=== PATIENT | female | born 1955 | race Caucasian/White ===

== ENCOUNTER → 2016-10-19 | Outpatient (CLI) | payer BC ==
[~2016-10-19] MED LIST: AMBIEN 10MG10 MG PO; ARTHROTEC 775 MG/TAB PO; ASPIRIN 81M81 MG/TA2 PO; BALANCE B-501 TA1 PO; CLARITIN 1010 MG/TAB PO; COD LIVER OIL1 CAP PO; CORAL CALCIUM1 POW; CRANBERRY FRUI405 MG PO; FERROUS SULFATE65 MG PO; FLOVENT DI50 MCG/Act IH; GLUCOSAMINE 1000; LIORESAL 1010 MG/TAB PO; MILK THISTLE150 MG PO; NATURE'S BLE1000 MCG PO; NORCO 325 MG-51 TAB PO; PREMARIN .3MG0.3 MG PO; PRINZIDE 12.5 M1 TAB PO; PROBIOTIC-MAJOR PO; THE MEDICINE S200 M2 PO; VITAMINC1000TA; [UNRECOGNIZED DRUG - OTHER] PO
== END ==
LOC: MHCPAIN 09:16
DX: G89.29 Other chronic pain (principal); M47.812 Spondylosis without myelopathy or radiculopathy, cervical region; M79.2 Neuralgia and neuritis, unspecified; M17.0 Bilateral primary osteoarthritis of knee; Z87.891 Personal history of nicotine dependence
CPT/HCPCS: G0463

== ENCOUNTER → 2017-08-02 | Outpatient (CLI) | payer BC | LOC: MHCPAIN 15:47 | DX: G89.29 Other chronic pain (principal); M79.2 Neuralgia and neuritis, unspecified; M79.1 Myalgia; M17.0 Bilateral primary osteoarthritis of knee | CPT/HCPCS: G0463 ==

== ENCOUNTER → 2017-08-26 | Outpatient (CLI) | payer BC | LOC: MHCPAIN 14:51 | DX: M17.0 Bilateral primary osteoarthritis of knee (principal) | CPT/HCPCS: J1040; Q9967 ==

== ENCOUNTER → 2017-11-08 | Outpatient (CLI) | payer BC | LOC: MHCPAIN 07:50 | DX: M79.1 Myalgia (principal); M79.2 Neuralgia and neuritis, unspecified | CPT/HCPCS: G0463 ==

== ENCOUNTER → 2018-02-28 | Outpatient (CLI) | payer BC | LOC: MHCPAIN 09:35 | DX: G89.29 Other chronic pain (principal); M53.3 Sacrococcygeal disorders, not elsewhere classified | CPT/HCPCS: G0463 ==

== ENCOUNTER → 2018-05-23 | Outpatient (CLI) | payer BC | LOC: MHCPAIN 07:59 | DX: G89.29 Other chronic pain (principal); M53.3 Sacrococcygeal disorders, not elsewhere classified; M79.2 Neuralgia and neuritis, unspecified | CPT/HCPCS: G0463 ==

== ENCOUNTER → 2018-08-17 | Outpatient (CLI) | payer BC | LOC: MHCPAIN 08:05 | DX: G89.29 Other chronic pain (principal); M54.81 Occipital neuralgia; R51 Headache; M47.812 Spondylosis without myelopathy or radiculopathy, cervical region | CPT/HCPCS: G0463 ==